=== PATIENT | female | born 1970 | race African-American/Black ===

== ENCOUNTER 2017-07-17 20:15 | Emergency (ER) | payer OTHER ==
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
[2017-07-17 20:27] VITALS: BP 119/78; PULSE 82; TEMP 98.6; BMI 23.6
[2017-07-17] MEDS ORDERED: IBUPROFEN 600 MG TABLET (FP) PO ONE ×2 (20:31→20:46)
== END 2017-07-17 21:04 | disposition home or self-care (01) ==
LOC: FER 20:15
DX: S39.012A Strain of muscle, fascia and tendon of lower back, initial encounter (principal); V43.52XA Car driver injured in collision with other type car in traffic accident, initial encounter; Y93.89 Activity, other specified; Y92.410 Unspecified street and highway as the place of occurrence of the external cause
CPT/HCPCS: 99282-25